=== PATIENT | male | born 1940 | race African-American/Black ===

== ENCOUNTER 2018-01-18 21:03 | Inpatient (IN) ==
[2018-01-18] MEDS ORDERED: ALBUTEROL/IPRATROPIUM 3 ML NEB RESP TX STA (21:59)
[2018-01-18 22:15] LABS: Basophils % 0.5 % (0.0-0.8); Eosinophils # 0.1 10*3/uL (0.0-0.87); Eosinophils % 1.7 % (0.00-10.9); Hematocrit 32.6 VOL% (42.0-52.0); Hemoglobin 10.7 GM/DL (14.0-18.0); Immature Granulocytes % 0.2 %; Immature Granulocytes Absolute 0.01 #; Lymphocytes # 1.4 10*3/uL (1.4-4.0); Lymphocytes % 22.7 % (21.2-54.2); Mean Corpuscular HGB Conc 32.8 GM/DL (32-36); Mean Corpuscular Hemoglobin 32 PG (27-34); Mean Corpuscular Volume 95.9 FL (87-102); Mean Platelet Volume 10.5 FL (9.6-12.0); Monocytes # 0.6 10*3/uL (0.11-0.8); Monocytes % 9.8 % (1.7-12.7); Neutrophils # 4.1 10*3/uL (1.4-7.4); Neutrophils % 65.1 % (38.7-73.9); Platelet Count 188 T/CUMM (130-400); Red Cell Distribution Width 14.5 % (9.3-17.3); White Blood Count 6.3 T/CUMM (4-12)
[2018-01-18 22:24] LABS: INR 1.1; PT Patient Result 11.2 SECS; Partial Thromboplastin Time 33.9 SECS (0-40)
[2018-01-18 22:28] LABS: Albumin 2.7 G/DL (3.4-5.0); Bilirubin,Total 0.4 MG/DL (0.2-1.0); Calcium 8.7 MG/DL (8.5-10.1); Osmolality,Calculated 271.8 MOS/KG (273-304); Potassium 2.8 MMOL/L (3.5-5.1); Total Protein 7.5 G/DL (6.4-8.3)
[2018-01-18 22:32] LABS: Troponin I Only 0.094 NG/ML (0.00-0.045)
[2018-01-18] MEDS ORDERED: POTASSIUM CHLORIDE 20 MEQ TABLET PO STA (23:30)
[2018-01-19] MEDS ORDERED: ACETAMINOPHEN 325 MG TABLET PO PRN (03:34)
[2018-01-19] MEDS ORDERED: ONDANSETRON 4 MG/2 ML VIAL IV PRN (03:34)
[2018-01-19] MEDS ORDERED: ALBUTEROL/IPRATROPIUM 3 ML NEB RESP TX PRN (03:38)
[2018-01-19] MEDS: methylPREDNISolone SOD SUC 40 MG/1 ML VIAL IV SCH ×3 (06:25→20:38)
[2018-01-19] MEDS: cefTRIAXone 1,000 MG in SYRINGE 1 EACH IV SCH (06:25)
[2018-01-19] MEDS: AZITHROMYCIN INJ 500 MG in SODIUM CHLORIDE 0.9% 250 ML IV SCH (06:26)
[2018-01-19] MEDS: LEVOTHYROXINE 25 MCG TABLET PO SCH (06:26)
[2018-01-19 07:29] LABS: Basophils % 0.4 % (0.0-0.8); Eosinophils # 0.2 10*3/uL (0.0-0.87); Eosinophils % 3.1 % (0.00-10.9); Hematocrit 28.3 VOL% (42.0-52.0); Hemoglobin 9.2 GM/DL (14.0-18.0); Immature Granulocytes % 0.2 %; Immature Granulocytes Absolute 0.01 #; Lymphocytes # 2.4 10*3/uL (1.4-4.0); Lymphocytes % 44.9 % (21.2-54.2); Mean Corpuscular HGB Conc 32.5 GM/DL (32-36); Mean Corpuscular Hemoglobin 31 PG (27-34); Mean Platelet Volume 10.5 FL (9.6-12.0); Monocytes # 0.6 10*3/uL (0.11-0.8); Monocytes % 11.4 % (1.7-12.7); Neutrophils # 2.2 10*3/uL (1.4-7.4); Platelet Count 167 T/CUMM (130-400); Red Blood Count 2.98 MC/CUMM (3.8-5.5); Red Cell Distribution Width 14.6 % (9.3-17.3); White Blood Count 5.4 T/CUMM (4-12)
[2018-01-19 08:01] LABS: Alanine Aminotransferase < 9 U/L (16-61); Albumin 2.4 G/DL (3.4-5.0); Alkaline Phosphatase 59 U/L (45-117); Aspartate Amino Transferase 18 U/L (0-37); Blood Urea Nitrogen 10 MG/DL (7-18); Glucose 81 MG/DL (74-106); Osmolality,Calculated 274.5 MOS/KG (273-304); Potassium 3.1 MMOL/L (3.5-5.1); Sodium 139 MMOL/L (136-145)
[2018-01-19] MEDS: hydrALAZINE 25 MG TABLET PO SCH ×3 (08:51→20:19)
[2018-01-19] MEDS: FUROSEMIDE 80 MG TABLET PO SCH ×2 (08:51→16:12)
[2018-01-19] MEDS: APIXABAN 2.5 MG TABLET PO SCH ×2 (08:51→20:20)
[2018-01-19] MEDS: PRIMIDONE 50 MG TABLET PO SCH (08:51)
[2018-01-19] MEDS: ALLOPURINOL 100 MG TABLET PO SCH (08:51)
[2018-01-19] MEDS: FERROUS GLUCONATE 324 MG TABLET PO SCH (08:51)
[2018-01-19] MEDS: PANTOPRAZOLE 40 MG TABLET PO SCH (08:51)
[2018-01-19] MEDS ORDERED: NON-FORMULARY MEDICATION (Umeclidinium Bromide [Incruse Ellipta] 1 PUFF) INH SCH (09:00)
[2018-01-19] MEDS ORDERED: CALCITRIOL 0.25 MCG CAPSULE PO SCH (09:00)
[2018-01-19] MEDS ORDERED: NON-FORMULARY MEDICATION (Fluticasone/Vilanterol [Breo Ellipta 100-25 Mcg Inh] 1 PUFF) INH SCH (09:00)
[2018-01-19] MEDS ORDERED: POTASSIUM CHLORIDE 20 MEQ TABLET PO ONE (13:53)
[2018-01-19] MEDS: BENZONATATE 100 MG CAPSULE PO SCH (22:48)
[2018-01-20] MEDS: methylPREDNISolone SOD SUC 40 MG/1 ML VIAL IV SCH ×2 (06:22→12:51)
[2018-01-20] MEDS: cefTRIAXone 1,000 MG in SYRINGE 1 EACH IV SCH (06:22)
[2018-01-20] MEDS: AZITHROMYCIN INJ 500 MG in SODIUM CHLORIDE 0.9% 250 ML IV SCH (06:23)
[2018-01-20] MEDS: LEVOTHYROXINE 25 MCG TABLET PO SCH (06:23)
[2018-01-20 06:56] LABS: Calcium 8.2 MG/DL (8.5-10.1); Osmolality,Calculated 280.7 MOS/KG (273-304); Potassium 3.5 MMOL/L (3.5-5.1)
[2018-01-20 07:05] LABS: Hematocrit 28.1 VOL% (42.0-52.0); Hemoglobin 9.3 GM/DL (14.0-18.0); Immature Granulocytes % 0.3 %; Immature Granulocytes Absolute 0.01 #; Lymphocytes # 1.1 10*3/uL (1.4-4.0); Mean Corpuscular HGB Conc 33.1 GM/DL (32-36); Mean Corpuscular Hemoglobin 31 PG (27-34); Mean Corpuscular Volume 94.6 FL (87-102); Mean Platelet Volume 10.7 FL (9.6-12.0); Monocytes # 0.3 10*3/uL (0.11-0.8); Monocytes % 9.2 % (1.7-12.7); Neutrophils # 2.2 10*3/uL (1.4-7.4); Neutrophils % 60.5 % (38.7-73.9); Platelet Count 186 T/CUMM (130-400); Red Blood Count 2.97 MC/CUMM (3.8-5.5); Red Cell Distribution Width 14.4 % (9.3-17.3); White Blood Count 3.6 T/CUMM (4-12)
[2018-01-20] MEDS: ALLOPURINOL 100 MG TABLET PO SCH (09:11)
[2018-01-20] MEDS: PRIMIDONE 50 MG TABLET PO SCH (09:11)
[2018-01-20] MEDS: BENZONATATE 100 MG CAPSULE PO SCH ×3 (09:11→21:29)
[2018-01-20] MEDS: APIXABAN 2.5 MG TABLET PO SCH ×2 (09:12→21:29)
[2018-01-20] MEDS: FUROSEMIDE 80 MG TABLET PO SCH ×2 (09:12→16:30)
[2018-01-20] MEDS: CALCITRIOL 0.25 MCG CAPSULE PO SCH (09:12)
[2018-01-20] MEDS: FERROUS GLUCONATE 324 MG TABLET PO SCH (09:12)
[2018-01-20] MEDS: hydrALAZINE 25 MG TABLET PO SCH ×3 (09:12→21:29)
[2018-01-20] MEDS: PANTOPRAZOLE 40 MG TABLET PO SCH (09:12)
[2018-01-20] MEDS ORDERED: guaiFENesin 200 MG/10 ML UDCUP PO PRN (13:22)
[2018-01-21] MEDS: methylPREDNISolone SOD SUC 40 MG/1 ML VIAL IV SCH ×2 (01:26→16:41)
[2018-01-21] MEDS: AZITHROMYCIN INJ 500 MG in SODIUM CHLORIDE 0.9% 250 ML IV SCH (05:00)
[2018-01-21 05:29] LABS: Hematocrit 26.5 VOL% (42.0-52.0); Hemoglobin 9.2 GM/DL (14.0-18.0); Immature Granulocytes % 0.4 %; Immature Granulocytes Absolute 0.02 #; Lymphocytes # 0.8 10*3/uL (1.4-4.0); Lymphocytes % 16.6 % (21.2-54.2); Mean Corpuscular HGB Conc 34.7 GM/DL (32-36); Mean Corpuscular Hemoglobin 32 PG (27-34); Mean Corpuscular Volume 91.7 FL (87-102); Mean Platelet Volume 10.4 FL (9.6-12.0); Monocytes # 0.1 10*3/uL (0.11-0.8); Monocytes % 2.7 % (1.7-12.7); Neutrophils # 3.9 10*3/uL (1.4-7.4); Neutrophils % 80.3 % (38.7-73.9); Platelet Count 188 T/CUMM (130-400); Red Blood Count 2.89 MC/CUMM (3.8-5.5); Red Cell Distribution Width 14.6 % (9.3-17.3); White Blood Count 4.8 T/CUMM (4-12)
[2018-01-21] MEDS: cefTRIAXone 1,000 MG in SYRINGE 1 EACH IV SCH (05:34)
[2018-01-21] MEDS: LEVOTHYROXINE 25 MCG TABLET PO SCH (05:35)
[2018-01-21 05:56] LABS: Calcium 7.8 MG/DL (8.5-10.1); Potassium 3.2 MMOL/L (3.5-5.1)
[2018-01-21] MEDS: FUROSEMIDE 80 MG TABLET PO SCH ×2 (09:13→18:17)
[2018-01-21] MEDS: APIXABAN 2.5 MG TABLET PO SCH ×2 (09:14→21:09)
[2018-01-21] MEDS: FERROUS GLUCONATE 324 MG TABLET PO SCH (09:14)
[2018-01-21] MEDS: hydrALAZINE 25 MG TABLET PO SCH ×3 (09:14→21:10)
[2018-01-21] MEDS: PRIMIDONE 50 MG TABLET PO SCH (09:14)
[2018-01-21] MEDS: ALLOPURINOL 100 MG TABLET PO SCH (09:15)
[2018-01-21] MEDS: PANTOPRAZOLE 40 MG TABLET PO SCH (09:15)
[2018-01-21] MEDS: BENZONATATE 100 MG CAPSULE PO SCH ×3 (09:15→21:10)
[2018-01-21] MEDS: CALCITRIOL 0.25 MCG CAPSULE PO SCH (09:24)
[2018-01-21 12:13] LABS: Hepatitis A Ab IgM Quant 0.18 Index; Hepatitis A Ab IgM Result Negative (Negative); Hepatitis B Core IgM Quant 0.19 Index; Hepatitis B Core IgM Result Negative (Negative); Hepatitis B Surface Ag Quant < 0.10 Index; Hepatitis B Surface Ag Result Negative (Negative); Hepatitis C Virus Ab Quant 0.16 Index; Hepatitis C Virus Ab Result Negative (Negative)
[2018-01-21] MEDS: ALBUTEROL/IPRATROPIUM 3 ML NEB RESP TX SCH (14:47)
[2018-01-21] MEDS: CARVEDILOL 3.125 MG TABLET PO SCH ×2 (16:40→21:09)
[2018-01-21] MEDS: predniSONE 20 MG TABLET PO SCH (18:18)
[2018-01-22] MEDS: ALBUTEROL/IPRATROPIUM 3 ML NEB RESP TX SCH ×3 (01:32→07:39)
[2018-01-22] MEDS: cefTRIAXone 1,000 MG in SYRINGE 1 EACH IV SCH (06:18)
[2018-01-22] MEDS: LEVOTHYROXINE 25 MCG TABLET PO SCH (06:18)
[2018-01-22] MEDS: AZITHROMYCIN INJ 500 MG in SODIUM CHLORIDE 0.9% 250 ML IV SCH (06:39)
[2018-01-22 07:32] LABS: Hematocrit 28.2 VOL% (42.0-52.0); Hemoglobin 9.3 GM/DL (14.0-18.0); Immature Granulocytes % 0.2 %; Immature Granulocytes Absolute 0.01 #; Lymphocytes # 1.1 10*3/uL (1.4-4.0); Lymphocytes % 24.8 % (21.2-54.2); Mean Corpuscular Hemoglobin 31 PG (27-34); Mean Corpuscular Volume 94.3 FL (87-102); Monocytes # 0.4 10*3/uL (0.11-0.8); Monocytes % 7.6 % (1.7-12.7); Neutrophils # 3.1 10*3/uL (1.4-7.4); Neutrophils % 67.4 % (38.7-73.9); Platelet Count 200 T/CUMM (130-400); Red Blood Count 2.99 MC/CUMM (3.8-5.5); Red Cell Distribution Width 14.5 % (9.3-17.3); White Blood Count 4.6 T/CUMM (4-12)
[2018-01-22 08:01] LABS: Calcium 7.9 MG/DL (8.5-10.1); Potassium 3.3 MMOL/L (3.5-5.1)
[2018-01-22] MEDS: FUROSEMIDE 80 MG TABLET PO SCH (09:25)
[2018-01-22] MEDS: FERROUS GLUCONATE 324 MG TABLET PO SCH (09:25)
[2018-01-22] MEDS: hydrALAZINE 25 MG TABLET PO SCH (09:26)
[2018-01-22] MEDS: PRIMIDONE 50 MG TABLET PO SCH (09:26)
[2018-01-22] MEDS: APIXABAN 2.5 MG TABLET PO SCH (09:26)
[2018-01-22] MEDS: CARVEDILOL 3.125 MG TABLET PO SCH (09:26)
[2018-01-22] MEDS: ALLOPURINOL 100 MG TABLET PO SCH (09:27)
[2018-01-22] MEDS: CALCITRIOL 0.25 MCG CAPSULE PO SCH (09:27)
[2018-01-22] MEDS: BENZONATATE 100 MG CAPSULE PO SCH (09:27)
[2018-01-22] MEDS: PANTOPRAZOLE 40 MG TABLET PO SCH (09:28)
[2018-01-22] MEDS ORDERED: predniSONE 10 MG TABLET ONE (11:58)
[2018-01-22] MEDS ORDERED: predniSONE 50 MG TABLET ONE (11:58)
[2018-01-22] MEDS: predniSONE 20 MG TABLET PO SCH (12:01)
[2018-01-22 12:55] VITALS: BP 120/82
== END 2018-01-22 14:04 | disposition home health service (06) | DRG 193 ==
LOC: N.ED 21:03 → N.EDINP 01-19 03:34 → SUATTDRO 01-19 03:34 → N.5E 01-19 04:04
PROVIDERS: ADMIT Internal Medicine; ATTEND Internal Medicine

== ENCOUNTER 2020-09-30 17:41 | Inpatient (IN) ==
[2020-09-30] MEDS ORDERED: ONDANSETRON 4 MG/2 ML VIAL IV STA (18:24)
[2020-09-30] MEDS ORDERED: DEXTROSE 50% 25 GM/50 ML VIAL IV PRN (19:21)
[2020-09-30] MEDS ORDERED: GLUCAGON 1 MG VIAL IM PRN (19:21)
[2020-09-30] MEDS ORDERED: ALBUTEROL/IPRATROPIUM 3 ML NEB RESP TX PRN (19:25)
[2020-09-30 19:43] LABS: Basophils % 0.8 % (0.0-0.8); Eosinophils # 0.3 10*3/uL (0.0-0.87); Eosinophils % 6.4 % (0.00-10.9); Hematocrit 33.4 VOL% (42.0-52.0); Hemoglobin 11.4 GM/DL (14.0-18.0); Immature Granulocytes % 0.4 %; Immature Granulocytes Absolute 0.02 #; Lymphocytes # 0.9 10*3/uL (1.4-4.0); Lymphocytes % 17.4 % (21.2-54.2); Mean Corpuscular HGB Conc 34.1 GM/DL (32-36); Mean Corpuscular Volume 93.3 FL (87-102); Monocytes % 7.6 % (1.7-12.7); Neutrophils % 67.4 % (38.7-73.9); Platelet Count 178 T/CUMM (130-400); Red Blood Count 3.58 MC/CUMM (3.8-5.5); Red Cell Distribution Width 21.1 % (9.3-17.3)
[2020-09-30] MEDS ORDERED: SODIUM CHLORIDE 0.9% 100 ML IV ONE (20:12)
[2020-09-30] MEDS: cefTRIAXone 1,000 MG in SYRINGE 1 EACH IV SCH (20:19)
[2020-09-30 20:21] LABS: Bilirubin,Total 8.1 MG/DL (0.2-1.0); Osmolality,Calculated 274.8 MOS/KG (273-304); Potassium 2.8 MMOL/L (3.5-5.1); Total Protein 8.1 G/DL (6.4-8.3)
[2020-09-30] MEDS: PRIMIDONE 50 MG TABLET PO SCH (21:50)
[2020-09-30] MEDS: APIXABAN 2.5 MG TABLET PO SCH (22:01)
[2020-10-01] MEDS ORDERED: ALPRAZolam 0.25 MG TABLET PO ONE (00:26)
[2020-10-01] MEDS: AZITHROMYCIN INJ 250 MG in SODIUM CHLORIDE 0.9% 250 ML IV SCH ×2 (01:52→21:25)
[2020-10-01 02:42] LABS: Eosinophils # 0.4 10*3/uL (0.0-0.87); Eosinophils % 9.1 % (0.00-10.9); Hematocrit 30.4 VOL% (42.0-52.0); Hemoglobin 10.8 GM/DL (14.0-18.0); Immature Granulocytes % 0.5 %; Immature Granulocytes Absolute 0.02 #; Lymphocytes # 0.9 10*3/uL (1.4-4.0); Lymphocytes % 21.8 % (21.2-54.2); Mean Corpuscular HGB Conc 35.5 GM/DL (32-36); Mean Corpuscular Volume 91.3 FL (87-102); Mean Platelet Volume 10.8 FL (9.6-12.0); Monocytes % 8.4 % (1.7-12.7); Neutrophils % 59.2 % (38.7-73.9); Platelet Count 150 T/CUMM (130-400); Red Blood Count 3.33 MC/CUMM (3.8-5.5); Red Cell Distribution Width 20.3 % (9.3-17.3); White Blood Count 4.2 T/CUMM (4-12)
[2020-10-01 03:40] LABS: Thyroid Stimulating Hormone 8.56 uIU/ml (0.358-3.74)
[2020-10-01] MEDS: LEVOTHYROXINE 25 MCG TABLET PO SCH (06:19)
[2020-10-01] MEDS: PANTOPRAZOLE 40 MG TABLET PO SCH (08:42)
[2020-10-01] MEDS: PRIMIDONE 50 MG TABLET PO SCH ×2 (08:44→21:24)
[2020-10-01] MEDS: APIXABAN 2.5 MG TABLET PO SCH (08:44)
[2020-10-01] MEDS: ONDANSETRON 4 MG/2 ML VIAL IV PRN (11:22)
[2020-10-01] MEDS: cefTRIAXone 1,000 MG in SYRINGE 1 EACH IV SCH (19:32)
[2020-10-01] MEDS: ENOXAPARIN 30 MG/0.3 ML SYRINGE SUBCUT SCH (19:32)
[2020-10-02] MEDS: AZITHROMYCIN 250 MG TABLET PO SCH (02:14)
[2020-10-02] MEDS: LEVOTHYROXINE 25 MCG TABLET PO SCH (06:57)
[2020-10-02 07:21] LABS: Basophils # 0.1 10*3/uL (0.0-0.2); Basophils % 1.1 % (0.0-0.8); Eosinophils # 0.4 10*3/uL (0.0-0.87); Eosinophils % 8.4 % (0.00-10.9); Hematocrit 33.3 VOL% (42.0-52.0); Immature Granulocytes % 0.4 %; Immature Granulocytes Absolute 0.02 #; Lymphocytes # 1.1 10*3/uL (1.4-4.0); Lymphocytes % 23.8 % (21.2-54.2); Mean Corpuscular Volume 91.2 FL (87-102); Mean Platelet Volume 10.5 FL (9.6-12.0); Monocytes % 5.9 % (1.7-12.7); Neutrophils % 60.4 % (38.7-73.9); Platelet Count 155 T/CUMM (130-400); Red Blood Count 3.65 MC/CUMM (3.8-5.5); Red Cell Distribution Width 20.8 % (9.3-17.3); White Blood Count 4.7 T/CUMM (4-12)
[2020-10-02 07:34] LABS: Osmolality,Calculated 271.1 MOS/KG (273-304); Potassium 3.5 MMOL/L (3.5-5.1)
[2020-10-02 08:00] LABS: Hypochromasia 2+
[2020-10-02 08:01] LABS: Macrocytosis 1+; Platelet Estimate Adequate; Target Cells 1+
[2020-10-02] MEDS: PRIMIDONE 50 MG TABLET PO SCH ×2 (08:44→22:33)
[2020-10-02] MEDS: PANTOPRAZOLE 40 MG TABLET PO SCH (08:44)
[2020-10-02] MEDS: APIXABAN 2.5 MG TABLET PO SCH (10:52)
[2020-10-02] MEDS: ACETAMINOPHEN 325 MG TABLET PO PRN (15:39)
[2020-10-02] MEDS: GLUCAGON 1 MG VIAL IM PRN (20:34)
[2020-10-02] MEDS: ENOXAPARIN 30 MG/0.3 ML SYRINGE SUBCUT SCH (22:30)
[2020-10-02] MEDS: cefTRIAXone 1,000 MG in SYRINGE 1 EACH IV SCH (22:42)
[2020-10-03] MEDS: ACETAMINOPHEN 325 MG TABLET PO PRN (01:07)
[2020-10-03 03:00] LABS: Basophils % 0.6 % (0.0-0.8); Eosinophils # 0.4 10*3/uL (0.0-0.87); Hematocrit 32.6 VOL% (42.0-52.0); Hemoglobin 11.1 GM/DL (14.0-18.0); Immature Granulocytes % 0.5 %; Immature Granulocytes Absolute 0.03 #; Lymphocytes # 1.4 10*3/uL (1.4-4.0); Lymphocytes % 21.1 % (21.2-54.2); Mean Corpuscular Volume 92.1 FL (87-102); Mean Platelet Volume 10.9 FL (9.6-12.0); Monocytes % 6.6 % (1.7-12.7); Neutrophils % 65.2 % (38.7-73.9); Platelet Count 155 T/CUMM (130-400); Red Blood Count 3.54 MC/CUMM (3.8-5.5); Red Cell Distribution Width 20.8 % (9.3-17.3); White Blood Count 6.5 T/CUMM (4-12)
[2020-10-03 03:18] LABS: Calcium 8.6 MG/DL (8.5-10.1); Osmolality,Calculated 260.2 MOS/KG (273-304); Potassium 3.8 MMOL/L (3.5-5.1)
[2020-10-03 03:35] LABS: Albumin 1.9 G/DL (3.4-5.0); Bilirubin,Total 7.3 MG/DL (0.2-1.0); Calcium 8.7 MG/DL (8.5-10.1); Osmolality,Calculated 262.1 MOS/KG (273-304); Potassium 3.9 MMOL/L (3.5-5.1); Total Protein 6.9 G/DL (6.4-8.3)
[2020-10-03] MEDS: LEVOTHYROXINE 25 MCG TABLET PO SCH (08:08)
[2020-10-03] MEDS: PANTOPRAZOLE 40 MG TABLET PO SCH (10:55)
[2020-10-03] MEDS: AZITHROMYCIN 250 MG TABLET PO SCH (10:55)
[2020-10-03] MEDS: PRIMIDONE 50 MG TABLET PO SCH ×2 (10:55→20:57)
[2020-10-03] MEDS: ONDANSETRON 4 MG/2 ML VIAL IV PRN (11:58)
[2020-10-03] MEDS ORDERED: DEXT 5% NACL 0.9% KCL 20 MEQ 20 MEQ/1,000 ML BAG IV ONE (12:00)
[2020-10-03] MEDS: ENOXAPARIN 30 MG/0.3 ML SYRINGE SUBCUT SCH ×2 (17:50→18:13)
[2020-10-03] MEDS: cefTRIAXone 1,000 MG in SYRINGE 1 EACH IV SCH (20:55)
[2020-10-04] MEDS: LEVOTHYROXINE 25 MCG TABLET PO SCH (05:45)
[2020-10-04 06:29] LABS: Calcium 9.1 MG/DL (8.5-10.1); Osmolality,Calculated 257.4 MOS/KG (273-304); Potassium 4.5 MMOL/L (3.5-5.1)
[2020-10-04 06:33] LABS: Albumin 1.8 G/DL (3.4-5.0); Bilirubin,Direct 6.47 MG/DL (0.0-0.20); Bilirubin,Total 8.4 MG/DL (0.2-1.0); Calcium 8.8 MG/DL (8.5-10.1); Osmolality,Calculated 256.4 MOS/KG (273-304); Potassium 4.5 MMOL/L (3.5-5.1); Total Protein 7.6 G/DL (6.4-8.3)
[2020-10-04 06:57] LABS: Basophils # 0.1 10*3/uL (0.0-0.2); Basophils % 0.8 % (0.0-0.8); Eosinophils # 0.4 10*3/uL (0.0-0.87); Eosinophils % 6.4 % (0.00-10.9); Hematocrit 34.6 VOL% (42.0-52.0); Hemoglobin 11.6 GM/DL (14.0-18.0); Immature Granulocytes % 0.6 %; Immature Granulocytes Absolute 0.04 #; Lymphocytes # 1.5 10*3/uL (1.4-4.0); Lymphocytes % 22.3 % (21.2-54.2); Mean Corpuscular HGB Conc 33.5 GM/DL (32-36); Mean Platelet Volume 11.8 FL (9.6-12.0); Monocytes % 7.8 % (1.7-12.7); Neutrophils % 62.1 % (38.7-73.9); Platelet Count 156 T/CUMM (130-400); Red Blood Count 3.68 MC/CUMM (3.8-5.5); White Blood Count 6.6 T/CUMM (4-12)
[2020-10-04] MEDS: GLUCAGON 1 MG VIAL IM PRN (07:23)
[2020-10-04 07:30] LABS: Platelet Estimate Adequate; Target Cells Few
[2020-10-04] MEDS: DEXTROSE 50% 25 GM/50 ML VIAL IV PRN ×4 (08:19→18:40)
[2020-10-04] MEDS: PANTOPRAZOLE 40 MG TABLET PO SCH (08:34)
[2020-10-04] MEDS: PRIMIDONE 50 MG TABLET PO SCH (08:34)
[2020-10-04] MEDS: AZITHROMYCIN 250 MG TABLET PO SCH (10:16)
[2020-10-04 11:44] LABS: ABG Base Excess -0.6 MMOL/L (-2.5-2.5); ABG HCO3 23.2 MMOL/L (20-26); ABG Oxygen Saturation 60.5 % (95-100); ABG PCO2 63.5 MM HG (35-48); ABG PH 7.255 (7.35-7.45); ABG TCO2 25.8 MMOL/L (23-27)
[2020-10-04] MEDS ORDERED: MORPHINE 4 MG/1 ML VIAL IV PRN ×2 (11:51→16:00)
[2020-10-04 11:55] LABS: ABG PO2 40.7 MM HG (80-95)
[2020-10-04] MEDS: ALBUTEROL/IPRATROPIUM 3 ML NEB RESP TX SCH ×2 (12:37→19:20)
[2020-10-04] MEDS ORDERED: AZITHROMYCIN 250 MG TABLET PO SCH (13:00)
[2020-10-04] MEDS ORDERED: VANCOMYCIN INJ 500 MG in SODIUM CHLORIDE 0.9% 100 ML IV PRN (14:24)
[2020-10-04] MEDS ORDERED: DEXTROSE 5% 1,000 ML IV SCH ×2 (14:30→16:30)
[2020-10-04] MEDS ORDERED: ALBUTEROL/IPRATROPIUM 3 ML NEB RESP TX ONE (14:33)
[2020-10-04] MEDS ORDERED: DEXTROSE 5% NACL 0.9% 1,000 ML IV SCH (16:30)
[2020-10-04] MEDS: HYDROCORTISONE 100 MG VIAL IV SCH (17:56)
[2020-10-04] MEDS ORDERED: VANCOMYCIN INJ 1,500 MG in SODIUM CHLORIDE 0.9% 500 ML IV ONE (18:30)
[2020-10-04 22:20] LABS: ABG Base Excess -1.8 MMOL/L (-2.5-2.5); ABG HCO3 22.3 MMOL/L (20-26); ABG Oxygen Saturation 61.2 % (95-100); ABG PO2 43.5 MM HG (80-95); ABG TCO2 26.6 MMOL/L (23-27)
[2020-10-04 22:24] LABS: ABG PCO2 73.9 MM HG (35-48); ABG PH 7.191 (7.35-7.45)
[2020-10-05] MEDS: ALBUTEROL/IPRATROPIUM 3 ML NEB RESP TX SCH ×4 (00:10→20:30)
[2020-10-05] MEDS: HYDROCORTISONE 100 MG VIAL IV SCH ×3 (01:01→16:19)
[2020-10-05] MEDS: PRIMIDONE 50 MG TABLET PO SCH (02:48)
[2020-10-05] MEDS: GLUCAGON 1 MG VIAL IM PRN (05:15)
[2020-10-05 06:09] LABS: Albumin 1.6 G/DL (3.4-5.0); Calcium 8.3 MG/DL (8.5-10.1); Free T4 (Free Thyroxine) 1.21 NG/DL (0.76-1.46); Osmolality,Calculated 259.4 MOS/KG (273-304); Thyroid Stimulating Hormone 6.89 uIU/ml (0.358-3.74); Total Protein 6.8 G/DL (6.4-8.3)
[2020-10-05] MEDS: PIPERACILLIN/TAZOBACTAM 3,375 MG in SODIUM CHLORIDE 0.9% 100 ML IV SCH ×2 (06:28→10:44)
[2020-10-05] MEDS: ENOXAPARIN 30 MG/0.3 ML SYRINGE SUBCUT SCH (06:28)
[2020-10-05 06:58] LABS: Hepatitis B Core IgM Quant 0.12 Index; Hepatitis B Surface Ag Result Non-Reactive (NonReactive); Hepatitis C Virus Ab Quant 0.04 Index; Hepatitis C Virus Ab Result Non-Reactive (NonReactive)
[2020-10-05] MEDS: DEXTROSE 50% 25 GM/50 ML VIAL IV PRN (07:12)
[2020-10-05 07:47] LABS: Basophils % 0.3 % (0.0-0.8); Eosinophils # 0.1 10*3/uL (0.0-0.87); Eosinophils % 1.4 % (0.00-10.9); Hematocrit 29.6 VOL% (42.0-52.0); Hemoglobin 10.5 GM/DL (14.0-18.0); Immature Granulocytes % 0.7 %; Immature Granulocytes Absolute 0.07 #; Lymphocytes # 1.1 10*3/uL (1.4-4.0); Lymphocytes % 11.2 % (21.2-54.2); Mean Corpuscular HGB Conc 35.5 GM/DL (32-36); Mean Corpuscular Volume 90.5 FL (87-102); Mean Platelet Volume 11.3 FL (9.6-12.0); Monocytes % 10.2 % (1.7-12.7); Neutrophils % 76.2 % (38.7-73.9); Platelet Count 141 T/CUMM (130-400); Red Blood Count 3.27 MC/CUMM (3.8-5.5); Red Cell Distribution Width 19.9 % (9.3-17.3); White Blood Count 10.1 T/CUMM (4-12)
[2020-10-05 08:13] LABS: Band Neutrophils 1 % (0-10); Eosinophils 1 % (0-10); Hypochromasia 1+; Lymphocytes 7 % (20-55); Microcytosis 1+; Platelet Estimate Adequate; Segmented Neutrophils 80 % (50-85); Total Cells Counted 100
[2020-10-05] MEDS: DEXTROSE 10% 1,000 ML IV SCH (09:30)
[2020-10-05] MEDS: LEVOTHYROXINE 25 MCG TABLET PO SCH (10:05)
[2020-10-05] MEDS: HEPARIN 5,000 UNIT/1 ML VIAL SUBCUT SCH (15:47)
[2020-10-05] MEDS: PIPERACILLIN/TAZOBACTAM 2,250 MG in SODIUM CHLORIDE 0.9% 100 ML IV SCH (22:19)
[2020-10-06] MEDS: ALBUTEROL/IPRATROPIUM 3 ML NEB RESP TX SCH ×4 (01:38→19:25)
[2020-10-06] MEDS: HEPARIN 5,000 UNIT/1 ML VIAL SUBCUT SCH ×2 (03:40→15:30)
[2020-10-06] MEDS: HYDROCORTISONE 100 MG VIAL IV SCH ×2 (04:05→13:40)
[2020-10-06 05:13] LABS: Basophils % 0.1 % (0.0-0.8); Hematocrit 31.7 VOL% (42.0-52.0); Hemoglobin 11.3 GM/DL (14.0-18.0); Immature Granulocytes % 0.7 %; Immature Granulocytes Absolute 0.05 #; Lymphocytes # 0.5 10*3/uL (1.4-4.0); Lymphocytes % 7.4 % (21.2-54.2); Mean Corpuscular HGB Conc 35.6 GM/DL (32-36); Mean Corpuscular Volume 90.3 FL (87-102); Mean Platelet Volume 11.7 FL (9.6-12.0); Monocytes % 6.2 % (1.7-12.7); NRBC # 0.02 10*3/uL; Neutrophils % 85.6 % (38.7-73.9); Platelet Count 183 T/CUMM (130-400); Red Blood Count 3.51 MC/CUMM (3.8-5.5); Red Cell Distribution Width 20.2 % (9.3-17.3); White Blood Count 6.8 T/CUMM (4-12)
[2020-10-06 05:44] LABS: Platelet Estimate Adequate; Target Cells Slight
[2020-10-06 05:44] LABS: Albumin 1.6 G/DL (3.4-5.0); Bilirubin,Total 8.6 MG/DL (0.2-1.0); Calcium 8.1 MG/DL (8.5-10.1); Osmolality,Calculated 257.1 MOS/KG (273-304); Potassium 5.4 MMOL/L (3.5-5.1); Total Protein 7.6 G/DL (6.4-8.3)
[2020-10-06] MEDS: PIPERACILLIN/TAZOBACTAM 2,250 MG in SODIUM CHLORIDE 0.9% 100 ML IV SCH ×2 (05:44→15:29)
[2020-10-06] MEDS: DEXTROSE 10% 1,000 ML IV SCH (06:58)
[2020-10-06 08:02] LABS: ABG Base Excess -5.1 MMOL/L (-2.5-2.5); ABG HCO3 20.2 MMOL/L (20-26); ABG Oxygen Saturation 98.4 % (95-100); ABG PCO2 46.4 MM HG (35-48); ABG PH 7.279 (7.35-7.45); ABG TCO2 19.8 MMOL/L (23-27)
[2020-10-06] MEDS ORDERED: SODIUM POLYSTYRENE SULFATE 15 GM/60 ML BOTTLE RECTAL ONE (12:00)
[2020-10-06] MEDS: LEVOTHYROXINE 25 MCG TABLET PO SCH (20:27)
[2020-10-06 22:25] LABS: ABG HCO3 20.7 MMOL/L (20-26); ABG Oxygen Saturation 72.6 % (95-100); ABG PCO2 51.1 MM HG (35-48); ABG PH 7.268 (7.35-7.45); ABG PO2 49.7 MM HG (80-95); ABG TCO2 21.5 MMOL/L (23-27)
[2020-10-07] MEDS: HYDROCORTISONE 100 MG VIAL IV SCH ×2 (00:07→09:18)
[2020-10-07] MEDS: PIPERACILLIN/TAZOBACTAM 2,250 MG in SODIUM CHLORIDE 0.9% 100 ML IV SCH ×2 (00:09→09:18)
[2020-10-07] MEDS: ALBUTEROL/IPRATROPIUM 3 ML NEB RESP TX SCH ×4 (00:53→19:58)
[2020-10-07] MEDS: HEPARIN 5,000 UNIT/1 ML VIAL SUBCUT SCH (03:54)
[2020-10-07 05:29] LABS: Hematocrit 30.2 VOL% (42.0-52.0); Hemoglobin 11.2 GM/DL (14.0-18.0); Immature Granulocytes % 0.6 %; Immature Granulocytes Absolute 0.04 #; Lymphocytes # 0.6 10*3/uL (1.4-4.0); Lymphocytes % 8.1 % (21.2-54.2); Mean Corpuscular HGB Conc 37.1 GM/DL (32-36); Mean Corpuscular Volume 86.8 FL (87-102); Mean Platelet Volume 11.6 FL (9.6-12.0); Monocytes % 9.9 % (1.7-12.7); Neutrophils % 81.4 % (38.7-73.9); Platelet Count 182 T/CUMM (130-400); Red Blood Count 3.48 MC/CUMM (3.8-5.5); White Blood Count 6.8 T/CUMM (4-12)
[2020-10-07 05:53] LABS: Albumin 1.6 G/DL (3.4-5.0); Calcium 7.6 MG/DL (8.5-10.1); Hypochromasia 2+; Microcytosis 1+; Osmolality,Calculated 262.6 MOS/KG (273-304); Potassium 5.4 MMOL/L (3.5-5.1); Target Cells 1+; Total Protein 7.6 G/DL (6.4-8.3)
[2020-10-07 05:54] LABS: Burr Cells Slight; Platelet Estimate Adequate
[2020-10-07] MEDS: LEVOTHYROXINE 25 MCG TABLET PO SCH (09:28)
[2020-10-07] MEDS ORDERED: MORPHINE 4 MG/1 ML VIAL IV PRN ×2 (09:43→13:38)
[2020-10-07] MEDS ORDERED: LORazepam 2 MG/1 ML VIAL IV PRN (09:43)
[2020-10-08 02:50] VITALS: BP 35/15
== END 2020-10-07 22:15 | disposition expired | DRG 193 ==
LOC: EDUNIT# → EDBD → N.EDINP 17:41 → N.ED 17:41 → SUATTDRO 18:50 → N.3E 21:02 → SUATTDRO 10-01 11:41
PROVIDERS: ADMIT Internal Medicine; ATTEND Emergency Medicine